=== PATIENT | female | born 1940 | race Caucasian/White ===

== ENCOUNTER 2016-04-17 17:42 | Inpatient (IN) | payer OTHER ==
--- NOTE | ~2016-04-17 | IDS ---
Interim Discharge Summary [facility] [address] [place] [address] NAME: DEBRA CALDERON : 40 STATUS : ADM IN PAT#: [id number] AGE: 76 ADM/REG DATE : 04/17/16 MR#: [id number] REPORT SERV DATE: 04/27/16 DICTATED BY: CAROL MENDOZA DATE: 04/27/16 REPORT STATUS : Draft TRANSCRIBED BY: MODL DATE: 04/27/16 ADMISSION DATE: 04/17/2016 DISCHARGE DATE: ADDENDUM: The patient had recent myocardial perfusion test with stress and rest on 04/23/2016, that actually showed no ischemia, but did show basal lateral infarct which is probably old. Post infusion ejection fraction was greater than 60%. Hence, this is an improvement in her ejection fraction from 35% that was found a few years ago to greater than 60% now. RRA/NINA Carol Mendoza M.D. / [id number] CC: Ashlyn Gordillo M.D.
--- NOTE | ~2016-04-17 | CN ---
Consultation Report [facility] [address] [place] [place]. [address] NAME: DEBRA CALDERON : 40 STATUS : ADM IN PAT#: [id number] AGE: 76 ADM/REG DATE : 04/17/16 MR#: [id number] REPORT SERV DATE: 04/23/16 DICTATED BY: NELSON VILLA DATE: 04/23/16 REPORT STATUS : Draft TRANSCRIBED BY: MODJuan Carlos DATE: 04/23/16 UROLOGY CONSULT DATE OF CONSULTATION: 04/23/2016 This consult is from Dr. Stapleton regarding urinary retention. CHIEF COMPLAINT: "I could not pass my urine." HISTORY: A 76-year-old woman, whom I saw in my office last on 11/07/2015 for urgency and sensation of incomplete emptying. However at that time, she was emptying her bladder well on urodynamic studies. She has had a stroke this admission and her bladder is in shock. She had 675 mL when the catheter was placed on the 04/20/2016. She has clear urine draining in the tubing now. She does have some discomfort in her lower abdomen with the catheter. She said it is intermittent and not very uncomfortable just this sensation. She did not follow up after her appointment in October, but states that she continued to have those feelings of incomplete emptying. PAST MEDICAL HISTORY: Significant for peripheral vascular disease, anemia, congestive heart failure, coronary artery disease, history of DVTs, hyperlipidemia, hypertension, valvular heart disease, gastroesophageal reflux disease, chronic renal disease stage 3, anxiety, history of stroke and now another stroke, and lung disease. PAST SURGICAL HISTORY: Coronary artery surgery, CABG, heart stents, and amputation of her left leg. ALLERGIES: MORPHINE, SULFA, AND ZOSYN. MEDICATIONS: On admission were Xanax, Plavix, Advair, Lasix, Neurontin, Imdur, Lopressor, nitrofurantoin which was started on the , Nitrostat, Zofran, Percocet, Pravachol, Zantac, Ranexa. SOCIAL HISTORY: She is , with six children. She used to smoke, but stopped in 2010. She drinks one to two soft drinks a day. REVIEW OF SYSTEMS: GENERAL: She denies fever. NEUROLOGIC: As above. LUNGS: As above. HEART: As above. GI: As above. : As above. MUSCULOSKELETAL: She has back pain. PHYSICAL EXAMINATION: Consultation Report [address] [place] [facility] [address] NAME: DEBRA CALDERON : 40 STATUS : ADM IN PAT#: [id number] AGE: 76 ADM/REG DATE : 04/17/16 MR#: [id number] REPORT SERV DATE: 04/23/16 DICTATED BY: NELSON VILLA DATE: 04/23/16 REPORT STATUS : Draft TRANSCRIBED BY: NINA DATE: 04/23/16 VITAL SIGNS: She is afebrile. Her vital signs are stable. She has had 1250 mL in and 1700 mL out yesterday. GENERAL: She is in no acute distress. NEUROLOGIC: Alert and oriented x3. PSYCHIATRIC: Appropriate. HEENT: She has bruising on her left lower face. Sclerae anicteric. NECK: Supple. LUNGS: Equal inspiratory effort bilaterally. EXTREMITIES: Her right lower extremity shows no edema. GENITOURINARY: She has a Richardson catheter in place, draining clear, yellow urine. LABORATORY STUDIES: White count is 7.6, hemoglobin 8.7, hematocrit 28.6, platelets 176. Creatinine is 1.27. Urinalysis was negative except for 150 glucose. IMPRESSION: Urinary retention, status post stroke consistent with a shock to bladder. PLAN: 1. I would recommend bladder rest for two weeks with Richardson catheter in place, draining continuously. 2. I have explained this to the patient and the family and they are in agreement with this plan. 3. I will write for Pyridium for her current catheter discomfort. 4. She may either followup in my office for a voiding trial in two weeks or may undergo voiding trial at rehab if that is where she goes from here. Thank you for this consult. NILDA/NINA Nelson Villa M.D. / [id number] CC: Ashlyn Gordillo M.D.
--- NOTE | ~2016-04-17 | IDS ---
Interim Discharge Summary [facility] [address] [place]. [address] NAME: DEBRA ABRAMS : 40 STATUS : ADM IN PAT#: [id number] AGE: 76 ADM/REG DATE : 04/17/16 MR#: [id number] REPORT SERV DATE: 04/27/16 DICTATED BY: CAROL MENDOZA DATE: 04/27/16 REPORT STATUS : Draft TRANSCRIBED BY: MODJuan Carlos DATE: 04/27/16 ADMISSION DATE: 04/17/2016 DISCHARGE DATE: DIAGNOSES: So far is: 1. Seizure disorder - the patient has had at least two episodes of unresponsiveness where Neurology thought that this was seizures and a repeat EEG actually shows a postictal state. Hence, the patient is now on Keppra for this. 2. Migraine headaches, which are atypical. Other diagnoses that are stable at this time include the followin. Coronary artery disease. 2. History of coronary artery bypass graft and history of ischemic cardiomyopathy with an ejection fraction of about 35%. This is stable and the patient has no other new ischemic events. 3. Peripheral vascular disease. 4. Status post left above-knee amputation. 5. Chronic kidney disease, stage III with a baseline creatinine of about 1.4, which is stable. 6. Chronic anemia, which is iron deficiency anemia basically, probably multifactorial, but no gastrointestinal bleed at this time. 7. History of diverticulosis, which is stable. 8. Remote history of transient ischemic attack, which is stable now. 9. The patient also has peripheral vascular disease with bilateral carotid artery blockages, right greater than left - Neurology has been following and CT Surgery also has been following with no definitive plans to intervene at this time given the patient's seizures. 10.The patient does have a right peripheral vascular disease as well with history of angioplasty and stenting of right external iliac as well as bilateral common iliac artery. BRIEF HOSPITAL COURSE: Ms Abrams is a 76-year-old lady with multiple medical problems who was admitted with actually history of dyspnea on exertion and exertional angina. The patient was admitted, cardiac enzymes obtained and because of history of chronic anemia - the patient has not been started on any heparin. But Dr. Bains, her regular central processing tech was consulted. He ordered a myocardial perfusion test that showed no acute ischemia, but did show depressed coronary ejection fraction as always. The patient also had two episodes of unresponsiveness during this period of hospitalization for which she had to be resuscitated and a Rapid Response was called. Neurology has been consulted and they did an EKG for the first time, which showed normal EKG, but the second time EEG did show slowing consistent with postictal state. The patient has been on Keppra for the seizure so far and has been doing well, but on 04/27/2016, the patient developed a headache which was pretty severe. The patient has been having headaches off and on, but this is fairly significant. Hence, the patient will be put on Percocet 5/325 p.o. q.6 hours for the headache, but we will go ahead and not give her any tramadol because tramadol Interim Discharge Summary [address] [place]. [address] NAME: DEBRA ABRAMS : 40 STATUS : ADM [facility]#: [id number] AGE: 76 ADM/REG DATE : 04/17/16 MR#: [id number] REPORT SERV DATE: 04/27/16 DICTATED BY: CAROL MENDOZA DATE: 04/27/16 REPORT STATUS : Draft TRANSCRIBED BY: NINA DATE: 04/27/16 increases the risk for seizures. The patient is actually a candidate for rehab, but she insists that she goes home this time and refuses rehab. So, once her seizure medications are stabilized and Neurology and Cardiology clears her and her headaches are controlled, the patient will be going home with home health nurse. RRA/MODL Carol Mendoza M.D. / [id number] CC: Ashlyn Gordillo M.D.
--- NOTE | ~2016-04-17 | CN ---
Consultation Report [facility] [address] [place]. [address] NAME: DEBRA CALDERON : 40 STATUS : ADM IN PAT#: [id number] AGE: 76 ADM/REG DATE : 04/17/16 MR#: [id number] REPORT SERV DATE: 04/20/16 DICTATED BY: GARY GREEN DATE: 04/20/16 REPORT STATUS : Draft TRANSCRIBED BY: MODL DATE: 04/20/16 DATE OF CONSULTATION: A 76-year-old white female admitted 04/17/2016 for issues of acute on chronic anemia, shortness of breath, and angina. We were consulted acutely after the Rapid Response Team was called because the patient went unresponsive. By the time I got on scene, I was notified by phone to come and intubate the patient. Upon my arrival, the patient had already had an ABG that looked okay with a pH of 7.4, pCO2 of 42, PO2 of 41, bicarbonate 25.7, and O2 saturation 99.6% on 100% FiO2. The patient had a normal glucose of 121 and initial blood pressure was as high as around 200/100. When I came on scene, they had Ambu bag over her, and I started to give physical or tactile stimuli, and she started becoming more arousable and opening her eyes. She gradually became more and more arousable from the initial presentation, and she was able to answer some simple questions and squeeze my hand with both arms and move her right leg. She has a history of a left BKA. On a nasal cannula, she was taken down to the CT scanner accompanied by myself and Dr. Ellis with Neurology. Noncontrast CT of the head did not show any blood and followup CTA of the head which was read by Dr. Ellis did not show any acute clot. She was taken to MICU bed #6. Her O2 saturation during the whole transfer process was anywhere from 91% to 93% on a few liters of nasal cannula oxygen. Blood pressure when we got to the MICU was 171/70, she was still able to arouse easily, and she was protecting her airway at the time. I asked the floor nurse who was taking care of the patient, there was no evidence of any blood loss either through vomit or through a lower GI bleed. REVIEW OF SYSTEMS: Unable to be obtained. PAST MEDICAL HISTORY: 1. Coronary artery disease with history of stent. 2. Peripheral vascular disease. 3. Chronic systolic heart failure with low EF of 35%. 4. Chronic kidney disease. 5. Hypertension. 6. Iron deficiency anemia. 7. Diverticulosis. 8. History of cecal AVMs. 9. Nephrolithiasis. 10.History of stroke. PAST SURGICAL HISTORY: 1. Left carotid endarterectomy. 2. Coronary artery bypass grafting. 3. Left eejex-cpm-avpc amputation. 4. Abdominal hysterectomy. 5. Revision of her left ddtjp-umn-gqsl amputation with a left vlruk-ptk-ucuk amputation. 6. Right external iliac as well as bilateral common iliac angioplasty and stenting. Consultation Report [address] [place]. [address] NAME: DEBRA CALDERON : 40 STATUS : ADM IN [facility]#: [id number] AGE: 76 ADM/REG DATE : 04/17/16 MR#: [id number] REPORT SERV DATE: 04/20/16 DICTATED BY: GARY GREEN DATE: 04/20/16 REPORT STATUS : Draft TRANSCRIBED BY: NINA DATE: 04/20/16 ALLERGIES: ZOSYN, SULFA, AND MORPHINE. HOME MEDICATIONS: Reviewed. SOCIAL HISTORY: Former smoker. No alcohol. No illicit drugs. FAMILY HISTORY: Mother of complications of childbirth. Father, lung cancer. Siblings, bone cancer as well as coronary disease. LABORATORY DATA: White blood cell count 7.4, hemoglobin 10.3, and platelets 218. Sodium 140, potassium 3.7, chloride 104, serum bicarb 27, BUN 22, and creatinine 1.41. Other pertinent labs include troponin negative x3, TSH 4.07 with free T4 of 1.07, serum ammonia 23, and BNP 415. Chest x-ray on admission, mild CHF with small pleural effusions. ASSESSMENT AND PLAN: 1. Unresponsive. 2. Possible stroke. 3. Acute on chronic anemia - iron deficiency anemia was thought to be the presumed diagnosis, (?) gastrointestinal bleed, history of AVMs. 4. Ischemic cardiomyopathy with low ejection fraction. 5. Chronic kidney disease. 6. Peripheral vascular disease with history of left hinoa-xgr-diuo amputation. The patient is more responsive at this current stay. Neurology had the plans of giving tPA given the possible stroke. We will discuss to make sure this is indeed the plan of care. The patient does have anemia that is being worked up. She is supposed to get EGD and colonoscopy on this admission when cleared by Cardiology from what the notes say. She did get blood transfusion on this admission for a low hemoglobin. We will recheck another H and H. We will keep her n.p.o. for now, put her on lactated Ringer and IV fluids. Continue with neuro checks and repeat an ABG. Neurology orders noted with MRI and EEG. Fifty minutes of critical care time. CEP/MODL Gary Green DO / [id number] CC: Consultation Report [address] [address] NAME: DEBRA CALDERON : 40 STATUS : ADM IN PAT#: [id number] AGE: 76 ADM/REG DATE : 04/17/16 MR#: [id number] REPORT SERV DATE: 04/20/16 DICTATED BY: GARY GREEN DATE: 04/20/16 REPORT STATUS : Draft TRANSCRIBED BY: MODL DATE: 04/20/16 Antonietta Delgado MD
--- NOTE | ~2016-04-17 | CN ---
Consultation Report [facility] [address] [place]. [address] NAME: DEBRA ABRAMS : 40 STATUS : ADM IN PAT#: [id number] AGE: 76 ADM/REG DATE : 04/17/16 MR#: [id number] REPORT SERV DATE: 04/18/16 DICTATED BY: DONNA VILLATORO III DATE: 04/18/16 REPORT STATUS : Draft TRANSCRIBED BY: NINA DATE: 04/18/16 CONSULTATION DATE OF CONSULTATION: 04/18/2016 HISTORY OF PRESENT ILLNESS: Mrs. Debra Abrams is a 76-year-old, white female, who had been in her usual state of health until approximately 2009. At that time, the patient presented with angina. The patient underwent percutaneous coronary intervention with implantation of a coronary stent. The patient did well until 02/2010. At that time, the patient presented with recurrent angina. The patient subsequently underwent cardiac catheterization followed by a coronary artery bypass graft surgery. The surgery was performed by Dr. Hua Baldwin. The patient did well until 2012. At that time, the patient noted recurrent angina. The patient subsequently underwent cardiac catheterization followed by percutaneous coronary intervention with implantation of two coronary stents. The patient also has a history of congestive heart failure resulting from an ischemic cardiomyopathy with a left ventricular ejection fraction of approximately 35%. The patient did well until approximately two weeks prior to this admission. At that time, the patient on the onset of dull substernal chest pains precipitated by exertion. The patient's chest pains were relieved by rest and sublingual nitroglycerin. The patient denied chest pain at rest. The patient was subsequently seen in the [facility] Emergency Room. The patient's hemoglobin was 6.0, hematocrit 21.3, troponin I level was less than 0.02. CPK level was 47, CK-MB was 0.6, and creatinine level was 1.5. A 12-lead electrocardiogram demonstrated sinus rhythm at 74 beats per minute with lateral nonspecific T-wave abnormalities. The patient subsequently received two units of packed red blood cells with a post transfusion hemoglobin of 10.6 and hematocrit of 33.7. Since that time, the patient has noted a significant improvement in her dyspnea on exertion and chest pain. The patient was referred for cardiovascular evaluation. The patient complained of dyspnea on exertion at less than 20 feet, two-pillow orthopnea, and occasional right pedal edema. The patient also complained of occasional brief palpitations. The patient denied paroxysmal nocturnal dyspnea and syncope. The patient has no history of rheumatic fever or cardiac murmur. The patient's documented coronary artery disease risk factors include hyperlipoproteinemia, hypertension, and peripheral arterial disease. PAST MEDICAL HISTORY: 1. Peripheral arterial disease. 2. Hyperlipoproteinemia. 3. Hypertension. 4. Stage III chronic kidney disease. 5. Nephrolithiasis. Consultation Report [address] [address] NAME: DEBRA ABRAMS : 40 STATUS : ADM IN PAT#: [id number] AGE: 76 ADM/REG DATE : 04/17/16 MR#: [id number] REPORT SERV DATE: 04/18/16 DICTATED BY: DONNA VILLATORO III DATE: 04/18/16 REPORT STATUS : Draft TRANSCRIBED BY: NINA DATE: 04/18/16 6. Status post stroke. 7. History of iron deficient anemia. 8. Diverticulosis. 9. History of depression. OPERATIVE PROCEDURES: 1. Status post appendectomy with a right salpingo-oophorectomy. 2. Status post lumbar spine fusion. 3. Status post both eyes cataract extractions with intra-ocular lens implants. 4. Status post coronary artery bypass graft surgery. 5. Status post right lower extremity bypass surgery. 6. Status post left carotid endarterectomy. 7. Status post left fgbky-ghw-rffk amputation. 8. Status post total abdominal hysterectomy. ALLERGIES: 1. ZOSYN. 2. SULFA MEDICATIONS. 3. MORPHINE SULFATE. HOME MEDICATIONS: 1. Alprazolam 1 mg p.o. at bedtime, p.r.n. 2. Clopidogrel 75 mg p.o. daily. 3. Fluticasone/salmeterol 250/50 one puff b.i.d. 4. Furosemide 20 mg p.o. daily. 5. Gabapentin 200 mg p.o. b.i.d. 6. Isosorbide mononitrate ER 30 mg p.o. daily. 7. Metoprolol 25 mg p.o. b.i.d. 8. Nitrofurantoin 100 mg p.o. b.i.d. 9. Nitroglycerin 0.4 mg sublingual p.r.n. chest pain. 10.Ondansetron 4 mg p.o. q.6 hours, p.r.n. nausea. 11.Oxycodone/acetaminophen 7.5/325 mg p.o. q.i.d., p.r.n. 12.Pravastatin 20 mg p.o. at bedtime. 13.Ranitidine 150 mg p.o. b.i.d. 14.Ranolazine ER 1000 mg p.o. b.i.d. FAMILY HISTORY: Positive for myocardial infarction, hypertension, stroke, arthritis, lung cancer, and bone cancer. Negative for seizures, kidney disease, liver disease, anemia, and mental illness. SOCIAL HISTORY: The patient has no history of alcohol use. The patient discontinued cigarette smoking approximately six years prior to this admission. PHYSICAL EXAMINATION: GENERAL: Physical examination demonstrated an alert, elderly white female, in no acute Consultation Report [address] [address] NAME: DEBRA ABRAMS : 40 STATUS : ADM IN [facility]#: [id number] AGE: 76 ADM/REG DATE : 04/17/16 MR#: [id number] REPORT SERV DATE: 04/18/16 DICTATED BY: DONNA VILLATORO III DATE: 04/18/16 REPORT STATUS : Draft TRANSCRIBED BY: NINA DATE: 04/18/16 distress. VITAL SIGNS: Demonstrated a temperature of 97.6 orally, respiratory rate of 18 breaths per minute, and a blood pressure of 118/62 mmHg with a heart rate of 61 beats per minute. SKIN: Warm and dry. NECK: Supple and nontender. There was decreased range of motion. There was no appreciable lymphadenopathy or thyromegaly. There was no jugular venous distention at 90 degrees. There was a left carotid bruit. There was no appreciable right carotid bruit. BACK: Examination of the back demonstrated no spinal or costovertebral angle tenderness. CHEST: Examination of the chest demonstrated left basilar inspiratory crackles. There were no rhonchi, wheezes, or pleural rubs. There was symmetrical expansion of the chest. There was no use of the accessory muscles for respiration. CARDIAC: Cardiac examination demonstrated a nonpalpable apical impulse. There was a regular rhythm and rate without murmur, rub, gallop, or mid systolic click. There were no thrills or heaves. There was no hepatojugular reflux. ABDOMEN: Examination of the abdomen demonstrated that it was mildly obese and soft. There was right lower quadrant tenderness to palpation. There was no appreciable hepatosplenomegaly or masses. Bowel sounds were intact. There were no abdominal bruits. There were bilateral femoral bruits. BACK: Examination of the extremities demonstrated that they were symmetrical, with the exception of a well-healed left gzayd-owf-maso amputation. There was decreased range of motion. There was no cyanosis, clubbing, or edema. The radial pulses were 2+ and equal. The right femoral pulse was 2+ and the left femoral pulse was trace to nonpalpable. The right dorsalis pedis pulse was 2+ and the right posterior tibial pulse was trace to nonpalpable. ASSESSMENT: Mrs. Debra Abrams is a 76-year-old white female with three other risk factors for coronary atherosclerotic disease (i.e., peripheral arterial disease, hyperlipoproteinemia, hypertension), status post PCI with implantation of a coronary stent (2009), status post coronary artery bypass graft surgery (02/27/2010), status post PCI with implantation of two coronary stents (approximately 2012), and a history of congestive heart failure resulting from an ischemic cardiomyopathy with a left ventricular ejection fraction of approximately 35%. The patient now presents with [place] [employer], class III angina pectoris, dyspnea on exertion, and a severe microcytic anemia consistent with iron deficiency. Although, the patient's angina and dyspnea has been significantly improved by the transfusion of two units of pack red blood cells, I would recommend cardiovascular evaluation prior to endoscopy/colonoscopy. Specifically, I have scheduled the patient for an echocardiogram and an intravenous basal dilator myocardial perfusion scan. Dr. Bains to return Wednesday a.m. /NINA Donna Villatoro III, M.D., [facility], [facility] Consultation Report [address] [place]. [address] NAME: DEBRA ABRAMS : 40 STATUS : ADM IN [facility]#: [id number] AGE: 76 ADM/REG DATE : 04/17/16 MR#: [id number] REPORT SERV DATE: 04/18/16 DICTATED BY: DONNA VILLATORO III DATE: 04/18/16 REPORT STATUS : Draft TRANSCRIBED BY: NINA DATE: 04/18/16 / [id number] CC: MD Hansel Donohue M.D. Alexander Stratienko, M.D.
--- NOTE | ~2016-04-17 | CN ---
Consultation Report [facility] [address] [place]. [address] NAME: DEBRA CALDERON : 40 STATUS : ADM IN PAT#: [id number] AGE: 76 ADM/REG DATE : 04/17/16 MR#: [id number] REPORT SERV DATE: 04/18/16 DICTATED BY: NICHOLAS JEAN-BAPTISTE DATE: 04/18/16 REPORT STATUS : Draft TRANSCRIBED BY: MODJuan Carlos DATE: 04/18/16 GI CONSULTATION. DATE OF CONSULTATION: REASON FOR CONSULTATION: Anemia. HISTORY OF PRESENT ILLNESS: A 76-year-old female, who I am familiar with. She has been worked up in the past for anemia and had an EGD and colonoscopy back in July 2012, at that time, showing cecal AVMs, few diverticula, and some hemorrhoids. She had a panendoscopy on 03/15/2014, showing irregular Z-line, erythema in the antrum, and small bowel was normal. Pathology was unremarkable on the biopsies. The patient has come in with complaints of chest pain with exertion. She was severely anemic with hemoglobin of 6. She received two units of blood and her hemoglobin is up to 10. She denies any fever or chills. No gross bleeding, and her Hemoccult here was negative for blood. 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 FAMILY HISTORY: Noncontributory. REVIEW OF SYSTEMS: A 10-point review of systems, otherwise, negative. HABITS: Denies any drug abuse. She is a former smoker. No alcohol. FAMILY HISTORY: Noncontributory from GI standpoint. HOME MEDICATIONS: Xanax, Plavix, Advair, Lasix, gabapentin, Imdur, metoprolol, Macrobid, nitroglycerin, Zofran, Percocet, Pravachol, ranitidine, and Ranexa. ALLERGIES: ZOSYN, SULFA DRUGS, AND MORPHINE. PHYSICAL EXAMINATION: VITAL SIGNS: Temperature is 97.9, pulse 64, respirations 19, and blood pressure 115/58. HEENT: Normocephalic and atraumatic. Extraocular muscles are intact. Conjunctiva slightly pale. NECK: Supple. No JVD. HEART: Regular. LUNGS: Clear to auscultation anteriorly without rales or rhonchi. ABDOMEN: Soft and nontender. EXTREMITIES: She does have a prior amputation, left lower extremity. Consultation Report [facility] [id number] [place]. [address] NAME: DEBRA CALDERON : 40 STATUS : ADM IN PAT#: [id number] AGE: 76 ADM/REG DATE : 04/17/16 MR#: [id number] REPORT SERV DATE: 04/18/16 DICTATED BY: NICHOLAS JEAN-BAPTISTE DATE: 04/18/16 REPORT STATUS : Draft TRANSCRIBED BY: MODL DATE: 04/18/16 NEUROLOGIC: She is alert. She is weak and oriented. LABORATORY DATA: Sodium 140, potassium 4.0, chloride 103, BUN 16, creatinine 1.5, white count is 6.9, hemoglobin 10.6, which is up from 6; platelets is 231. Troponin I was less than 0.02. INR is 1.3. Chest x-ray, PA and lateral shows mild CHF with small pleural effusion. IMPRESSION: 1. Severe microcytic anemia with low iron. Studies consistent with iron deficiency anemia. 2. Coronary artery disease. 3. Chest pain. 4. Weakness. 5. Congestive heart failure. RECOMMENDATIONS: 1. Monitor H and H. 2. Transfuse as needed. 3. Anemia causes likely multifactorial. She does have a history of AVMs, also renal insufficiency, and she stopped taking her iron supplement that is a few months ago. 4. We will plan EGD and colonoscopy after cardiac clearance was given. We will follow with you. KAYLAN/NINA Nicholas Jean-Baptiste M.D. / [id number] CC: MD Hansel Donohue M.D.
--- NOTE | ~2016-04-17 | EEG ---
Electroencephalogram [facility] [id number] [place]. [address] NAME: DEBRA CALDERON : 40 STATUS : ADM IN PAT#: [id number] AGE: 76 ADM/REG DATE : 04/17/16 MR#: [id number] REPORT SERV DATE: 04/20/16 DICTATED BY: DATE: REPORT STATUS : Draft TRANSCRIBED BY: MODL DATE: 04/20/16 CLINICAL INDICATION: Encephalopathy, myoclonus jerk. DESCRIPTION: This EEG was performed using 10/20 electrode placement system. During the EEG study, symmetric background activity was noted with predominant occipital rhythm of roughly 8 hertz. Muscle artifact contamination was seen particularly in the bilateral frontal area. Otherwise, photic stimulation was performed with appropriate driving response. Hyperventilation was not performed secondary to the patient's underlying medical conditions. The patient achieved drowsy state during the EEG study. No clinical myoclonus was seen during the EEG evaluation. No electrographic seizure was noted during the EEG evaluation. INTERPRETATION: This EEG study obtained during awake and drowsy state may be considered within normal limits. No focal abnormalities, seizure activity, or seizure discharge was otherwise noted. Clinical correlation is recommended. [facility]/MODL Mendez Bradford MD / [id number] CC: MD Hansel Donohue M.D.
--- NOTE | ~2016-04-17 | CN ---
Consultation Report [facility] [address] [place]. [address] NAME: DEBRA CALDERON : 40 STATUS : ADM IN [facility]#: [id number] AGE: 76 ADM/REG DATE : 04/17/16 MR#: [id number] REPORT SERV DATE: 04/20/16 DICTATED BY: DATE: REPORT STATUS : Draft TRANSCRIBED BY: MODL DATE: 04/20/16 NEUROLOGY CONSULTATION DATE OF CONSULTATION: 04/20/2016 REASON FOR CONSULT: Acute change in mental status. HISTORY OF PRESENT ILLNESS: This is a 76-year-old female who presented to [facility] on 04/17/2016 secondary to anemia as well as chest pain upon exertion. The patient was scheduled for a stress test when the patient acutely at 0730 hours became unresponsive and no focal deficit was observed other than the unresponsiveness. The patient was noted to have normal ABG at that time and normal glucose level. The patient does not appear to have similar events in the past. No history of seizure. Prior to that, the patient was alert and oriented x3. Follows simple commands without significant difficulty. The patient subsequently was noted to have improvement in mental status after D50 resuscitation although the patient was still noted to have aphasia and was noted to have generalized weakness. Prior to the hospitalization, no reports of fevers, chills, nausea, vomiting, chest pain, or shortness of breath was otherwise noted. PAST MEDICAL HISTORY: The patient's past medical history is significant for coronary artery disease, status post coronary artery bypass surgery; history of peripheral vascular disease; chronic kidney disease; hypertension; iron-deficiency anemia; diverticulosis; nephrolithiasis as well as previous history of stroke without significant residual deficits. The patient does have congestive heart failure with last known ejection fraction of 35% in 2013. ALLERGIES: THE PATIENT WAS NOTED TO HAVE ALLERGY TO ZOSYN, SULFA DRUG WELL MORPHINE. SOCIAL HISTORY: Previous tobacco usage, quit 6 years ago. No alcohol or illicit drug usage. FAMILY HISTORY: Significant for lung cancer as well as bone cancer and coronary artery disease. MEDICATIONS: The patient's current hospital medications consist of aspirin, Plavix, Dulera, Imdur, Lasix, Lopressor, Neurontin, pravastatin, Protonix, and Ranexa. REVIEW OF SYSTEMS: Unable to be obtained secondary to the patient's mental status. PHYSICAL EXAMINATION: VITAL SIGNS: At the time of evaluation, the patient was noted to have vital signs with T- max of 98.2, heart rate of 53 to 67, respirations of 16 to 18, and blood pressure of 120 to 152 over 54 to 90. GENERAL: The patient is well developed, well nourished, in no acute distress. Consultation Report [facility] [address] [place]. [address] NAME: DEBRA CALDERON : 40 STATUS : ADM IN PAT#: [id number] AGE: 76 ADM/REG DATE : 04/17/16 MR#: [id number] REPORT SERV DATE: 04/20/16 DICTATED BY: DATE: REPORT STATUS : Draft TRANSCRIBED BY: MODL DATE: 04/20/16 CARDIOVASCULAR: Regular rate and rhythm. No carotid bruits were otherwise auscultated. PULMONARY: Examination was clear to auscultation bilaterally. NEUROLOGICAL EXAMINATION: Generally the patient is lethargic but arousable, difficulty maintaining arousal. The patient was noted to have no significant verbal response but is able to follow simple commands, at the time of evaluation was noted to have difficulty following 2-step commands. Cranial nerves 2 through 12. Pupils equal, round, and reactive to light. Horizontal eye movement was seen with the patient demonstrating itlku-ds-cvsydu response. Facial expression appeared to be symmetric with the patient demonstrated noticing response to noxious stimulation in bilateral face as well as bilateral upper and lower extremity. The patient was noted to have amputation of the left lower extremity. Otherwise, was able to have 1/5 right lower extremity as well as bilateral upper extremity movement. Deep tendon reflex was hyperreflexic in bilateral upper extremity and right lower extremity. Ndlmnd-hd-utzy examination as well as gait was unable to be evaluated due to the patient's mental status as well as weakness. At the time of evaluation, the patient was noted to have white blood cell count of 7.4, hemoglobin of 10.3, hematocrit of 33.3, and platelet count of 218. Chemistry panel: Sodium of 140, potassium 3.7, chloride 104, bicarb 27, BUN of 22, creatinine 1.41, glucose 108, calcium of 8.4, and magnesium 1.9. ABG demonstrated pH of 7.41, pCO2 of 42, PO2 of 401, bicarb of 25.7, and O2 saturation of 99.6. CT scan of the brain otherwise demonstrated no significant process with CT angiogram demonstrated no proximal vessel stenosis or thrombus. IMPRESSION: Encephalopathy acutely unresponsive at 0730 hours with previous noted to be alert and oriented x3, followed commands. The patient, after resuscitation, was noted to have mild improvement of mental status but still was noted to have significant decreased verbal response. The patient is able to follow simple commands. NIH stroke scale was noted to be 18. No acute abnormality was seen on noncontrast CT of the brain. CT angiogram of the head and neck, the patient was noted to have some myoclonus at the time of evaluation. We will also check for metabolic etiology. We will also obtain EEG. RECOMMENDATIONS: 1. MRI of the brain without contrast. 2. Fasting lipid panel and hemoglobin A1c. 3. We will hold aspirin and Plavix after tPA. The patient's tPA was given at 0830 hours. 4. Echocardiogram. 5. EEG. 6. Ammonia level. 7. We will start the patient on Keppra 250 mg p.o. b.i.d. [facility]/MODL Mendez Bradford MD Consultation Report [address] [address] NAME: DEBRA CALDERON : 40 STATUS : ADM IN [facility]#: [id number] AGE: 76 ADM/REG DATE : 04/17/16 MR#: [id number] REPORT SERV DATE: 04/20/16 DICTATED BY: DATE: REPORT STATUS : Draft TRANSCRIBED BY: MODL DATE: 04/20/16 / [id number] CC: Antonietta Delgado MD
--- NOTE | ~2016-04-17 | IDS ---
Interim Discharge Summary [facility] [address] [place] [place]. [address] NAME: DEBRA CALDERON : 40 STATUS : ADM IN PAT#: [id number] AGE: 76 ADM/REG DATE : 04/17/16 MR#: [id number] REPORT SERV DATE: 04/27/16 DICTATED BY: CAROL MENDOZA DATE: 04/27/16 REPORT STATUS : Draft TRANSCRIBED BY: MODL DATE: 04/27/16 ADMISSION DATE: 04/17/2016 DISCHARGE DATE: The date that I am transferring the patient to my partner is 04/27/2016. DIAGNOSES: 1. Chest pain-nonspecific, this has resolved. Even though, the patient has multiple cardiac risk factors for chest pain including history of coronary artery disease, status post coronary artery bypass graft, ischemic cardiomyopathy with ejection fraction of only 35%. 2. Brief period of unresponsiveness that caused the patient to be called with rapid response-this is probably secondary to. DICTATION ENDS HERE AFIA/NINA Carol Mendoza M.D. / [id number] CC: Ashlyn Gordillo M.D.
--- NOTE | ~2016-04-17 | DS ---
Discharge Summary [facility] [address] [place]. [address] NAME: DEBRA CALDERON : 40 STATUS : ADM IN PAT#: [id number] AGE: 76 ADM/REG DATE : 04/17/16 MR#: [id number] REPORT SERV DATE: 04/29/16 DICTATED BY: EL EGAN DATE: 04/29/16 REPORT STATUS : Draft TRANSCRIBED BY: MODL DATE: 04/29/16 ADMISSION DATE: 04/17/2016 DISCHARGE DATE: 04/29/2016 CONSULTANTS: 1. Esau Villatoro M.D., [facility]. 2. Raj Bains M.D., Cardiology. 3. Jose Elias Chaney M.D., GI. 4. Gary Green DO, Critical Care. 5. Mendez Bradford MD. 6. Reyna Medina MD, Neurology. 7. Nelson Villa M.D., Urology. DISCHARGE PROBLEM LIST: 1. Unstable angina due to coronary disease and severe iron-deficiency anemia. 2. New onset seizures. 3. Coronary artery disease with previous PCI in 2009 and 2012 with coronary bypass 2010 with ejection fraction 55% and moderate pulmonary hypertension of 48. 4. Peripheral arterial disease with previous left above knee amputation, left carotid endarterectomy, and iliac stents. 5. Prior TIA. 6. Acute urinary retention requiring Richardson catheter. 7. Hypertension. 8. Leukocytosis. 9. History of cecal AV malformations. HISTORY: This patient was experiencing chest pain. She has some chronic chest pain from her coronary disease despite previous stents and bypass and the use of Ranexa. She reportedly was noted by her attending ambulatory care to have very low hemoglobin levels and was referred to the emergency room for this on an urgent basis. At presentation, her hemoglobin was 6 with microcytic MCV of 68.3. She was referred to our team for inpatient evaluation. The patient received transfusions and her hemoglobin improved and stabilized around 7.7. She was seen by GI, Dr. Chaney, and recommended to have EGD and colonoscopy once her cardiac and other situations were stabilized. Dr. Esau Villatoro of Cardiology saw her covering for Dr. Bains. The patient underwent a nuclear stress test on 04/23/2016 which showed a stable basal infarct, no ischemia, left ventricular ejection fraction greater than 60%. She had an echocardiogram on 04/21/2016 showing left atrial enlargement, 4.6 cm, left ventricular ejection fraction 55%, moderate pulmonary hypertension with PA pressure 48, mild mitral and tricuspid regurgitation. Then, the patient began having episodes where she had been unresponsive, no focal neurologic deficits. There was some possible improvement after D50 glucose but still with some aphasia and generalized weakness. Neurology, Dr. Bradford saw the patient. The patient had acute stroke protocol. CT of the brain showed some atrophy but no evidence of abnormality otherwise. She had a CTA of the neck and brain when changes of a left carotid endarterectomy. Some stents in the left subclavian, reported early stenosis of the proximal Discharge Summary [address] [place]. [address] NAME: DEBRA CALDERON : 40 STATUS : ADM IN PAT#: [id number] AGE: 76 ADM/REG DATE : 04/17/16 MR#: [id number] REPORT SERV DATE: 04/29/16 DICTATED BY: EL EGAN DATE: 04/29/16 REPORT STATUS : Draft TRANSCRIBED BY: NINA DATE: 04/29/16 left subclavian stent. Intracranial CTA brachiocephalic was otherwise reportedly normal. Carotid ultrasound showed 50-69% stenosis of the left carotid, right carotid less than 50% stenosis. MRA of the brain on 04/21/2016 revealed mild chronic small vessel ischemic changes. The right internal carotid had a 75% stenosis in the cavernous portion. There was a high-grade short segment stenosis, the left [employer] 2 cm beyond its origin, 50% stenosis of the left common carotid origin, evidence of left carotid endarterectomy without stenosis currently. 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 The patient had these occur several times. She had several EEGs the first of which was unremarkable. Subsequent later EEG read by Neurology to have changes consistent with a postictal state. They recommended that she be on Keppra. The patient had some acute urinary retention. She was seen by urologist, Dr. Villa who recommended Richardson catheter for at least two weeks and then a voiding trial in their office. We got clearance from Dr. Stratienko for GI to proceed with endoscopy and we put a consult into them. However, before they actually came back to see her again, the patient has announced that she is not willing to stay for her GI workup in the hospital. She is tired. She wants to go home. Her agrees they understand the risks. They want to see Dr. Chaney back in the office as an outpatient. The patient does still have some myoclonus, right arm more than the left. She has some leukocytosis with a white count of 15,000. She is afebrile. No focal signs of infection but she is not willing to stay. She is calm. She is clear. She is making sense. She is not willing to go to rehab despite our recommendations. She is only willing to go home with her and home health. We are setting up home health nurse to come out for further Richardson catheter care teaching beyond what the nurses have given her here. We are asking for home physical therapy. She already has a walker and a standard wheelchair and a power chair and a bedside commode. The patient's iron studies showed her serum iron low at 16, ferritin low at 14%, iron saturation low at 12, TIBC was 400, folic acid was 7.2, B12 is 559. We did give her 2 doses of IV iron. She is not willing to stay in the hospital for any further. So we are going to start her on some oral iron. DISCHARGE MEDICATIONS: Aspirin 81 mg daily; Pravachol 20 mg daily at bedtime; Plavix 75 mg daily; Lasix 20 mg daily; gabapentin 200 mg twice a day; Imdur 30 mg daily; Keppra 750 mg b.i.d.; melatonin [id number]-kqw-rxlycrw 3 mg at bedtime p.r.n.; metoprolol 25 mg b.i.d.; Protonix 40 mg b.i.d.(started during this hospitalization for possible GI bleed but no GI bleed ever documented); MiraLax p.r.n.; Ranexa 1000 mg extended release twice a day; Tylenol 650 q.4 hours p.r.n. pain or fever; nitroglycerin 0.4 mg sublingual p.r.n.; Xanax 1 mg at bedtime p.r.n. insomnia which is a chronic medicine for her; Zofran 4 mg ODT q.6 hours p.r.n. nausea; Advair Diskus 250/50 one puff twice a day which is a chronic medicine for her; Percocet 7/325 four times a day p.r.n. pain; Nu-Iron 150 mg p.o. b.i.d. She is to follow up with her PCP, Dr. Hansel Tipton in one week; urologist, Dr. Villa in Discharge Summary [address] [address] NAME: DEBRA CALDERON : 40 STATUS : ADM IN PAT#: [id number] AGE: 76 ADM/REG DATE : 04/17/16 MR#: [id number] REPORT SERV DATE: 04/29/16 DICTATED BY: EL EGAN DATE: 04/29/16 REPORT STATUS : Draft TRANSCRIBED BY: MODL DATE: 04/29/16 one week; and [facility] in 4-6 weeks; Cardiology, Dr. Bains in one to two weeks; GI, Dr. Chaney in one to two weeks. I spent 53 minutes today with the patient and family in discharge planning. RSG/AYAKAL El Egan M.D. / [id number] CC: Ashlyn Jacobo M.D. Alexander Stratienko, M.D. James Scott Manton, M.D. Larry Sprouse II, M.D. Kymber Habenicht, M.D. Nilesh C Patel, M.D. [facility]
--- NOTE | ~2016-04-17 | HP ---
History And Physical [place] [id number] [facility] [place]. [address] NAME: DEBRA ABRAMS : 40 STATUS : ADM IN PAT#: [id number] AGE: 76 ADM/REG DATE : 04/17/16 MR#: [id number] REPORT SERV DATE: 04/17/16 DICTATED BY: NICHOLAS PINEDA DATE: 04/17/16 REPORT STATUS : Draft TRANSCRIBED BY: MODL DATE: 04/17/16 DATE OF ADMISSION: 04/17/2016 POINT OF ENTRY: [facility] Emergency Department. PRIMARY PERSONAL LINES ACCOUNT MANAGER: Dr. Bains. PRIMARY SWEEPER CLEANER INDUSTRIAL: Dr. Mejia. CHIEF COMPLAINT: Chest pain with exertion as well as a low hemoglobin levels. HISTORY OF PRESENT ILLNESS: Ms. Abrams is a 76-year-old female with a history of coronary artery disease with prior coronary artery bypass grafting as well as peripheral vascular disease, chronic kidney disease stage 3, as well as hypertension, who presents to the emergency room today with multiple complaints including dyspnea on exertion as well as low hemoglobin levels. The patient appears to have had issues with chronic chest pain in the past that she is both on Imdur as well as Ranexa. They state that she was placed on Ranexa by Dr. Bains about a year ago with some improvement in her chest pain complaints. For the past month, she has noted dyspnea as well as angina with exertion. She denies any chest pain at rest. She states that the shortness of breath and chest pain will quickly resolve once she ceases exertion and rests. She unfortunately has not informed any of her physicians about this new development. The patient is also referred to the emergency department for low hemoglobin levels as noted by her rental sales agent. The patient states that she has required blood transfusions in the past, and looking through [facility], it appears that she has received a blood transfusion as recently as 02/2014 for hemoglobin level of 7.1. She denies any melena, hematochezia, hemoptysis, or hematemesis. Does report she has some red-colored urine. She states she does not see a GI doctor on a regular basis. Per review of [facility], it appears that she had an EGD by Dr. Chaney in 03/2014 that appeared to be normal at that time, although review of [facility] does reveal that she has iron deficient anemia looking at her iron studies. The patient denies any abdominal pain, nausea, vomiting, diarrhea, constipation, melena, hematochezia, hemoptysis, or hematemesis. Comprehensive review of system otherwise negative unless listed in history of present illness. Initial evaluation in the emergency department notable for a hemoglobin level of 6.0, hematocrit of 21.3 with MCV of 68, an elevated RDW, occult stool was negative. Her initial EKG and cardiac enzymes were unremarkable. Chest x-ray was concerning for a mild CHF type pattern with some bilateral pleural effusions. The ER physician ordered 2 units of packed red blood cells to be transfused, and she was admitted to the Hospitalist Service. History And Physical [address] [address] NAME: DEBRA ABRAMS : 40 STATUS : ADM IN PAT#: [id number] AGE: 76 ADM/REG DATE : 04/17/16 MR#: [id number] REPORT SERV DATE: 04/17/16 DICTATED BY: NICHOLAS PINEDA DATE: 04/17/16 REPORT STATUS : Draft TRANSCRIBED BY: NINA DATE: 04/17/16 PREVIOUS MEDICAL HISTORY: 1. Coronary artery disease with prior coronary artery bypass grafting. 2. Peripheral vascular disease. 3. Chronic kidney disease, stage 3, baseline creatinine of approximately 1.2 to 1.4. 4. Hypertension. 5. Iron-deficiency anemia. 6. Diverticulosis. 7. Nephrolithiasis. 8. Remote history of TIA/CVA. 9. History of chronic systolic congestive heart failure. Last known ejection fraction of 35% on echocardiogram from 2013. SURGICAL HISTORY: 1. Left carotid endarterectomy. 2. Coronary artery bypass grafting. 3. Left qwotm-wip-zrop amputation with revision to left npzsg-jkw-zxcm amputation. 4. Abdominal hysterectomy. 5. Right external iliac as well as bilateral common iliac angioplasty and stenting. ALLERGIES: ZOSYN, SULFA DRUGS, AND MORPHINE. HOME MEDICATIONS: 1. Xanax 1 mg at bedtime. 2. Plavix 75 mg daily. 3. Advair one puff inhalation b.i.d. 4. Lasix 20 mg daily. 5. Gabapentin 200 mg b.i.d. 6. Imdur 30 mg daily. 7. Metoprolol 25 mg b.i.d. 8. Macrobid 100 mg b.i.d. 9. Nitroglycerin 0.4 mg sublingual p.r.n. 10.Zofran 4 mg q.6 hours p.r.n. 11.Percocet 7.5/325 one tab q.i.d. p.r.n. 12.Pravachol 20 mg at bedtime. 13.Ranitidine 150 mg b.i.d. 14.Ranexa 100 mg b.i.d. SOCIAL HISTORY: She is a former smoker, quit about 6 years ago. Denies any alcohol. Denies any illicits. FAMILY MEDICAL HISTORY: Mother from complication of childbirth. Father with history of lung cancer. Siblings with history of bone cancer as well as coronary artery disease. LABS AND IMAGIN. White count is 6.2, hemoglobin 6.0, hematocrit 21.3, and platelet count 273. INR 1.3. MCV is 68, RDW is elevated at 17. History And Physical [address] [address] NAME: DEBRA ABRAMS : 40 STATUS : ADM IN [facility]#: [id number] AGE: 76 ADM/REG DATE : 04/17/16 MR#: [id number] REPORT SERV DATE: 04/17/16 DICTATED BY: NICHOLAS PINEDA DATE: 04/17/16 REPORT STATUS : Draft TRANSCRIBED BY: NINA DATE: 04/17/16 2. Occult stool negative. 3. Sodium is 140, potassium 4.0, chloride 103, carbon dioxide 26, BUN 16, creatinine 1.50, glucose is 119, calcium is 8.6, magnesium 2.0, protein 7.1, albumin 3.1, bilirubin is 0.4, ALT is 17, AST 14, alkaline phosphatase is 56. 4. Troponin is less than 0.02. 5. EKG per my review shows normal sinus rhythm with no evidence of any acute ischemia or infarction. Chest x-ray shows a mild CHF type pattern with bilateral pleural effusions as well as intravascular volume overload. 6. Per review of [facility], she has echocardiogram from 08/2013 which shows ejection fraction of 35%. However, she also has cardiac catheterization from same month where a left ventriculogram reportedly showed preserved ejection fraction. PHYSICAL EXAMINATION: VITAL SIGNS: Temperature is 97.0 Degrees Fahrenheit, pulse is 74, respirations 17, saturating 97% on room air. Blood pressure is 135/60. GENERAL: The patient is awake, alert, in no acute distress. Resting comfortably in bed. She is a well-developed, well-nourished, elderly female. Multiple family members are at bedside. HEENT: Atraumatic and normocephalic. Moist mucous membranes. Pupils are equal, round, reactive to light and accommodation. Extraocular eye movements are intact. No scleral icterus. NECK: No jugular venous distention. No carotid bruits. CARDIAC: Regular rate and rhythm. No murmurs, rubs, or gallops. Normal S1, S2. LUNGS: Clear to auscultation bilaterally. Does have some decreased breath sounds at bases as well as faint inspiratory crackles at bilateral bases. ABDOMEN: Soft, nontender, nondistended. Good bowel sounds. No rebound, guarding, or rigidity. EXTREMITIES: Warm and perfused. No cyanosis, clubbing, or edema. She is status post left AKA. SKIN: Warm and dry except for noted above. PSYCH: Affect appropriate. NEURO: Alert and oriented x3. Cranial nerves 2 through 12 grossly intact. Speech is normal. Gait not assessed. ASSESSMENT: Ms. Abrams is a 76-year-old female, who presents with a one-month history of exertional angina as well as dyspnea on exertion and also found to have a hemoglobin level of 6.0. PROBLEM LIST: 1. Exertional angina. 2. Dyspnea on exertion. 3. Microcytic anemia. 4. Chronic kidney disease stage 3. 5. History of chronic systolic congestive heart failure with ejection fraction of 35%. 6. History of coronary artery disease as well as peripheral vascular disease. PLAN: History And Physical [address] [address] NAME: DEBRA ABRAMS : 40 STATUS : ADM IN [facility]#: [id number] AGE: 76 ADM/REG DATE : 04/17/16 MR#: [id number] REPORT SERV DATE: 04/17/16 DICTATED BY: NICHOLAS PINEDA DATE: 04/17/16 REPORT STATUS : Draft TRANSCRIBED BY: MODL DATE: 04/17/16 1. Exertional angina. The patient does have extensive known cardiac and peripheral vascular disease. However, I suspect that a majority of her exertional angina is likely related to her worsening anemia. Initial EKG and cardiac enzymes were unremarkable. Continue to trend out cardiac enzymes. Continue the patient's home aspirin, Plavix, beta trena, statin, long-acting nitrates, as well as Ranexa. We will consult the patient's primary sales representative cash registers, Dr. Bains, for assistance. 2. Dyspnea on exertion. Again, I suspect this is likely due to her profound anemia. She does appear euvolemic on examination. Her chest x-ray is concerning for some mild intravascular volume overload. We will check a BNP level as well as give some IV Lasix after her blood transfusions. 3. Microcytic anemia. Occult stool was negative. Recent EGD also negative but review of labs showed she was iron deficient in 04/2015. We will consult Gastroenterology for assistance. Recheck iron studies as well as folate, B12, and reticulocyte count. Place her on Protonix IV b.i.d. empirically. 4. Chronic kidney disease stage 3. Close to her recent baseline. We will continue to monitor. 5. History of chronic systolic congestive heart failure. The patient appears euvolemic on exam but slightly volume overloaded on chest x-ray. We will check a BNP level as well as give IV Lasix after each unit of blood transfusion. 6. History of coronary artery disease as well as peripheral vascular disease. Continue the patient's home aspirin, Plavix, as well as beta trena and statin. 7. DVT prophylaxis. FARIBA's and SCD's given concern for bleeding. CODE STATUS: The patient wished to be full code. JCB/MODL Nicholas Pineda MD / [id number] CC: MD Fariba Donohue M.D. Alexander Stratienko, M.D.
--- NOTE | ~2016-04-17 | EEG ---
Electroencephalogram [address] [address] NAME: DEBRA CALDERON : 40 STATUS : ADM IN PAT#: [id number] AGE: 76 ADM/REG DATE : 04/17/16 MR#: [id number] REPORT SERV DATE: 04/25/16 DICTATED BY: REYNA MEDINA DATE: 04/25/16 REPORT STATUS : Draft TRANSCRIBED BY: NINA DATE: 04/25/16 ELECTROENCEPHALOGRAPHY REPORT INTERPRETING PHYSICIAN: Reyna Medina M.D. EEG NUMBER: [id number]. LOCATION OF THE PATIENT: Room [address] [place] [address]. REASON FOR EEG: New onset seizures. 23 surface electrodes, 10-20 international placement was used. The patient was noted to be awake and drowsy throughout the study. Photic stimulation was performed. Brief period of light sleep was recorded. The background activity consisted of moderate voltage, poorly organized posterior predominantly theta range activity of 6-9 cycles per second located in the posterior head regions. Increase of slower frequencies was noted throughout the study. Photic stimulation did not bring out additional abnormalities. No significant asymmetry of cerebral activity was seen. Intermittent increase of slower and higher in amplitude waveforms were seen in the posterior temporal parietooccipital regions bilaterally. The patient's clinical research monitor showed sinus rhythm. Heart rate of approximately 72 beats per minute. The video recording showed no evidence of tonic-clonic activity during this study. Increase of faster in appearance waveform was seen in the anterior head regions. IMPRESSION: MILDLY ABNORMAL EEG CHARACTERIZED BY PRESENCE OF INCREASE OF GENERALIZED SLOWING. THIS MAY REPRESENT A POSTICTAL STATE. EPISODE OF INCREASED RHYTHMIC IN APPEARANCE SHOWING POSTERIORLY SEEN TOWARDS THE END OF THE RECORDING. HOWEVER, IT DID NOT CORRESPOND TO ABNORMAL TONIC-CLONIC ACTIVITY. IMPRESSION: ABNORMAL EEG CHARACTERIZED BY PRESENCE OF DIFFUSE GENERALIZED SLOWING, WHICH MAY BE CONSISTENT WITH A POSTICTAL STATE. NO ACTIVE PAROXYSMAL EPILEPTIFORM ACTIVITY WAS SEEN DURING THIS STUDY. NO SIGNIFICANT ASYMMETRY OF CEREBRAL ACTIVITY WAS PRESENT. CLINICAL CORRELATION IS RECOMMENDED. DANIEL/NINA Reyna Medina MD / [id number] CC: Ashlyn Gordillo M.D.
[2016-04-17 16:13] LABS: BASOPHILS 0.2 %; BASOPHILS ABSOLUTE 0.01 10/3/uL (0.0-0.16); EOSINOPHILS 0.5 %; EOSINOPHILS ABSOLUTE 0.03 10/3/uL (0.0-0.53); ER CBC TAT 0 Hrs 05 Mins; HEMATOCRIT 21.3 % (36.0-48.0); IMMATURE GRANULOCYTES 0.5 %; IMMATURE GRANULOCYTES ABSOLUTE 0.03 10/3/uL (0.0-0.11); LYMPHOCYTES 23.6 %; LYMPHOCYTES ABSOLUTE 1.45 10/3/uL (0.67-4.30); MEAN CORPUS HGB CONC 28.2 g/dL (32.0-36.0); MEAN CORPUSCULAR HEMOGLOB 19.2 pg (26.0-34.0); MEAN CORPUSCULAR VOLUME 68.3 fL (80-100); MEAN PLATELET VOLUME 9.5 fL (9.2-13.0); MONOCYTES 9.9 %; MONOCYTES ABSOLUTE 0.61 10/3/uL (0.21-1.20); NEUTROPHILS 65.3 %; NEUTROPHILS ABSOLUTE 4.02 10/3/uL (2.02-8.40); PLATELET COUNT 273 10/3/uL (150-400); RBC DISTRIBUTION WIDTH 17.3 % (12.0-16.0); RED CELL COUNT 3.12 10/6/uL (4.0-5.6); WHITE BLOOD CELLS 6.2 10/3/uL (4.5-10.5)
[2016-04-17 16:15] LABS: MANUAL DIFF NO %
[2016-04-17 16:21] LABS: INTERNATIONAL NORMAL RATI 1.3 UNITS (-); PROTIME (NOT ORD) 15.7 SEC (12.0-14.5)
[2016-04-17 16:22] LABS: PARTIAL THROMBO TIME 34.9 SEC (22.5-37.2)
[2016-04-17 16:29] LABS: BUN (BLOOD UREA NITROGEN) 16 MG/DL (6-23); CALCIUM, SERUM 8.6 MG/DL (8.5-10.4); CHEST PAIN PROFILE TAT 0 Hrs 21 Mins; CHLORIDE, SERUM 103 MMOL/L (96-112); CO2 (CARBON DIOXIDE) 26 MMOL/L (24-34); GFR AFRICAN AMERICAN 39 ML/MIN (>=60); GFR NON AFRICAN AMERICAN 33 ML/MIN (>=60); SODIUM, SERUM 140 MMOL/L (135-148); TROPONIN I <0.02 NG/ML (<0.05)
[2016-04-17 16:30] LABS: GLUCOSE, SERUM 119 MG/DL (60-99)
[2016-04-17 17:28] LABS: ALBUMIN 3.1 G/DL (3.5-5.0); ALKALINE PHOSPHATASE 56 U/L (45-117); DIRECT BILIRUBIN 0.1 MG/DL (0.0-0.4); INDIRECT BILIRUBIN(NOT ORDER) 0.3 MG/DL (0.1-0.9); SGOT(AST) 14 U/L (5-40); SGPT(ALT) 17 U/L (5-65); TOTAL BILIRUBIN 0.4 MG/DL (0-1.2); TOTAL PROTEIN 7.1 G/DL (6.0-8.5)
[~2016-04-17 17:42] MED LIST: *UNABLE3; ACCUNEB INH; ADALAT CC30 MG PO; ALTA2.5 PO; ASA5GR PO; ASAB; ASAB PO; BRILINTA PO; BRILINTA90 MG PO; C5 PO; COREG12 PO; COREG6 PO; CRESTOR10 PO; DEPO-ESTRAD5 MG/1 ML IM; DSS PO; DYAZIDE1 CAP PO; ENDOCET1 TA1 PO; ENDOCET1 TAB PO; ESTRADIOL; ESTROGEN INJ IM; ISOSORB DIN30 MG PO; K-TABS10 MEQ PO; K500 PO; KDUR20 PO; KLOR-CON M2020 MEQ PO; L40 PO; LEVAQUIN5T PO; LOP25 PO; LOVENOX40 SC; LYRICA100 MG PO; MAALOX PO; MAX25 PO; MEP50TAB PO; METHOC500B PO; MINITRAN0.2 MG/HR TOP; MIRALAXPKT PO; MUCINEX1200 MG PO; NAC 600 OR; NERVE PILL; NEUR300 PO; NITROII20C TOP; NITROII30C TOP; NITROSTAT0.4 MG SL; NTG150 SL; OXYCON10 PO; PCET PO; PERCOCET1 TA2 PO; PERCOCET1 TA3 PO; PHILLIPS M800 MG/5 M PO; PLAVIX PO; PR12.5 PO; PR25 PO; PRAVAC PO; PRAVACHOL40 MG PO; PRILOSEC40 MG PO; PRIN5 PO; PROAIR HFA PO; PROTONIX PO; PROVHFA INH; RAN500 PO; RANEXA1000 MG PO; SIMVASTATIN PO; STOMACH PILL; SYMBICORT 160/41 INH INH; T PO; TOPXL25 PO; TYLENOL PM PO; VENTOLIN HFA INH; X5 PO; XANAX1 MG PO; ZOFRAN4 PO; ZYVOXPO PO; [UNRECOGNIZED DRUG - OTHER] IM
[2016-04-17] MEDS ORDERED: MACROBID PO (18:29)
[2016-04-17] MEDS ORDERED: IMDUR30 PO (18:32)
[2016-04-17] MEDS ORDERED: RANEXA1000 MG PO (18:33)
[2016-04-17] MEDS ORDERED: ADVAIR250 INH (18:33)
[2016-04-17] MEDS ORDERED: XANAX1 MG PO (18:34)
[2016-04-17] MEDS ORDERED: LOP25 PO (18:34)
[2016-04-17] MEDS ORDERED: PLAVIX PO (18:34)
[2016-04-17] MEDS ORDERED: L20 PO ×2 (18:35)
[2016-04-17] MEDS ORDERED: ZOFRAN ODT4 MG PO (18:35)
[2016-04-17] MEDS ORDERED: NITROSTAT0.4 MG SL (18:36)
[2016-04-17] MEDS ORDERED: PERCOCET 7.5/321 TAB PO (18:36)
[2016-04-17] MEDS ORDERED: PRAVAC PO (18:37)
[2016-04-17] MEDS ORDERED: NEUR100 PO (18:37)
[2016-04-17] MEDS ORDERED: ZANTAC150 MG PO (18:38)
[2016-04-17 21:28] LABS: FERRITIN 14 NG/ML (8-252); IRON BINDING CAPACITY 400 MCG/DL (225-410); IRON, SERUM 16 MCG/DL (35-150)
[2016-04-17 23:08] LABS: RETICULOCYTE COUNT 2.7 % (0.5-2.5); RETICULOCYTE COUNT ABSOLUTE 108.8 10/3/uL (20.2-119.8)
[2016-04-17 23:23] LABS: CK-MB 0.6 NG/ML; CPK 47 U/L (0-200); TROPONIN I <0.02 NG/ML (<0.05)
[2016-04-18 06:56] LABS: BASOPHILS 0.1 %; BASOPHILS ABSOLUTE 0.01 10/3/uL (0.0-0.16); EOSINOPHILS ABSOLUTE 0.14 10/3/uL (0.0-0.53); HEMATOCRIT 33.7 % (36.0-48.0); HEMOGLOBIN 10.6 g/dL (12.0-16.0); IMMATURE GRANULOCYTES 0.7 %; IMMATURE GRANULOCYTES ABSOLUTE 0.05 10/3/uL (0.0-0.11); LYMPHOCYTES 23.2 %; MANUAL DIFF NO %; MEAN CORPUS HGB CONC 31.5 g/dL (32.0-36.0); MEAN CORPUSCULAR VOLUME 69.9 fL (80-100); MEAN PLATELET VOLUME 10.4 fL (9.2-13.0); MONOCYTES 7.8 %; MONOCYTES ABSOLUTE 0.54 10/3/uL (0.21-1.20); NEUTROPHILS 66.2 %; NEUTROPHILS ABSOLUTE 4.55 10/3/uL (2.02-8.40); PLATELET COUNT 231 10/3/uL (150-400); RBC DISTRIBUTION WIDTH 18.5 % (12.0-16.0); RED CELL COUNT 4.82 10/6/uL (4.0-5.6); WHITE BLOOD CELLS 6.9 10/3/uL (4.5-10.5)
[2016-04-18 07:07] LABS: BUN (BLOOD UREA NITROGEN) 18 MG/DL (6-23); CALCIUM, SERUM 8.6 MG/DL (8.5-10.4); CHLORIDE, SERUM 102 MMOL/L (96-112); CO2 (CARBON DIOXIDE) 27 MMOL/L (24-34); CPK 46 U/L (0-200); CREATININE 1.46 MG/DL (0.55-1.02); FREE T4 1.07 NG/DL (0.76-1.46); GFR AFRICAN AMERICAN 40 ML/MIN (>=60); GFR NON AFRICAN AMERICAN 35 ML/MIN (>=60); PHOSPHORUS, SERUM 3.6 MG/DL (2.5-4.5); POTASSIUM, SERUM 3.8 MMOL/L (3.5-5.3); SODIUM, SERUM 140 MMOL/L (135-148); TROPONIN I <0.02 NG/ML (<0.05)
[2016-04-18 07:10] LABS: CK-MB 0.7 NG/ML; FOLATE 12.7 NG/ML (>5.2); GLUCOSE, SERUM 86 MG/DL (60-99)
[2016-04-18 07:28] LABS: ANISOCYTOSIS 1+ (5-10/OIF) (0-5/OIF); PLATELET ESTIMATE ADQ (ADEQUATE)
[2016-04-18 07:29] LABS: ELLIPTOCYTES 1+ (3-10/OIF) (0-2/OIF); GIANT PLATELET RARE; HYPOCHROMIA 1+ (3-10/OIF) (0-2/OIF); POIKILOCYTOSIS 1+ (5-10/OIF) (0-5/OIF)
[2016-04-18 20:04] LABS: HEMATOCRIT 34.7 % (36.0-48.0); HEMOGLOBIN 10.7 g/dL (12.0-16.0)
[2016-04-19 04:41] LABS: BASOPHILS 0.3 %; BASOPHILS ABSOLUTE 0.02 10/3/uL (0.0-0.16); EOSINOPHILS ABSOLUTE 0.24 10/3/uL (0.0-0.53); HEMATOCRIT 36.2 % (36.0-48.0); HEMOGLOBIN 11.2 g/dL (12.0-16.0); IMMATURE GRANULOCYTES 0.4 %; IMMATURE GRANULOCYTES ABSOLUTE 0.03 10/3/uL (0.0-0.11); LYMPHOCYTES 22.9 %; LYMPHOCYTES ABSOLUTE 1.81 10/3/uL (0.67-4.30); MEAN CORPUS HGB CONC 30.9 g/dL (32.0-36.0); MEAN CORPUSCULAR HEMOGLOB 21.7 pg (26.0-34.0); MEAN CORPUSCULAR VOLUME 70.3 fL (80-100); MEAN PLATELET VOLUME 10.2 fL (9.2-13.0); MONOCYTES ABSOLUTE 0.71 10/3/uL (0.21-1.20); NEUTROPHILS 64.4 %; NEUTROPHILS ABSOLUTE 5.08 10/3/uL (2.02-8.40); PLATELET COUNT 210 10/3/uL (150-400); RBC DISTRIBUTION WIDTH 18.7 % (12.0-16.0); RED CELL COUNT 5.15 10/6/uL (4.0-5.6); WHITE BLOOD CELLS 7.9 10/3/uL (4.5-10.5)
[2016-04-19 04:42] LABS: MANUAL DIFF NO %
[2016-04-19 04:46] LABS: A/G RATIO 0.7 (0.7-1.9); ALKALINE PHOSPHATASE 52 U/L (45-117); BUN (BLOOD UREA NITROGEN) 18 MG/DL (6-23); CALCIUM, SERUM 8.6 MG/DL (8.5-10.4); CHLORIDE, SERUM 101 MMOL/L (96-112); CO2 (CARBON DIOXIDE) 26 MMOL/L (24-34); CREATININE 1.56 MG/DL (0.55-1.02); GFR AFRICAN AMERICAN 37 ML/MIN (>=60); GFR NON AFRICAN AMERICAN 32 ML/MIN (>=60); GLOBULIN 4.2 G/DL (2.5-4.1); GLUCOSE, SERUM 79 MG/DL (60-99); POTASSIUM, SERUM 3.7 MMOL/L (3.5-5.3); SGOT(AST) 21 U/L (5-40); SGPT(ALT) 16 U/L (5-65); SODIUM, SERUM 138 MMOL/L (135-148); TOTAL BILIRUBIN 0.6 MG/DL (0-1.2); TOTAL PROTEIN 7.2 G/DL (6.0-8.5)
[2016-04-19 05:29] LABS: ANISOCYTOSIS 1+ (5-10/OIF) (0-5/OIF); PLATELET ESTIMATE ADQ (ADEQUATE)
[2016-04-19 05:30] LABS: POLYCHROMASIA 1+ (2-5/OIF) (0-1/OIF); TEARDROP SHAPED RBCS OCC (0-2/OIF)
[2016-04-19 05:31] LABS: ELLIPTOCYTES 1+ (3-10/OIF) (0-2/OIF); POIKILOCYTOSIS 1+ (5-10/OIF) (0-5/OIF)
[2016-04-20 07:03] LABS: BASOPHILS 0.3 %; BASOPHILS ABSOLUTE 0.02 10/3/uL (0.0-0.16); EOSINOPHILS 2.8 %; EOSINOPHILS ABSOLUTE 0.21 10/3/uL (0.0-0.53); HEMATOCRIT 33.3 % (36.0-48.0); HEMOGLOBIN 10.3 g/dL (12.0-16.0); IMMATURE GRANULOCYTES 0.3 %; IMMATURE GRANULOCYTES ABSOLUTE 0.02 10/3/uL (0.0-0.11); LYMPHOCYTES 23.4 %; LYMPHOCYTES ABSOLUTE 1.74 10/3/uL (0.67-4.30); MANUAL DIFF NO %; MEAN CORPUS HGB CONC 30.9 g/dL (32.0-36.0); MEAN CORPUSCULAR HEMOGLOB 21.9 pg (26.0-34.0); MEAN CORPUSCULAR VOLUME 70.9 fL (80-100); MEAN PLATELET VOLUME 9.8 fL (9.2-13.0); MONOCYTES 9.5 %; MONOCYTES ABSOLUTE 0.71 10/3/uL (0.21-1.20); NEUTROPHILS 63.7 %; NEUTROPHILS ABSOLUTE 4.74 10/3/uL (2.02-8.40); PLATELET COUNT 218 10/3/uL (150-400); RBC DISTRIBUTION WIDTH 19.2 % (12.0-16.0); WHITE BLOOD CELLS 7.4 10/3/uL (4.5-10.5)
[2016-04-20 07:08] LABS: CALCIUM, SERUM 8.4 MG/DL (8.5-10.4); CHLORIDE, SERUM 104 MMOL/L (96-112); CO2 (CARBON DIOXIDE) 27 MMOL/L (24-34); CREATININE 1.41 MG/DL (0.55-1.02); GFR AFRICAN AMERICAN 42 ML/MIN (>=60); GFR NON AFRICAN AMERICAN 36 ML/MIN (>=60); PHOSPHORUS, SERUM 3.2 MG/DL (2.5-4.5); POTASSIUM, SERUM 3.7 MMOL/L (3.5-5.3); SODIUM, SERUM 140 MMOL/L (135-148)
[2016-04-20 07:09] LABS: BUN (BLOOD UREA NITROGEN) 22 MG/DL (6-23); GLUCOSE, SERUM 108 MG/DL (60-99)
[2016-04-20 07:42] LABS: PLATELET ESTIMATE ADQ (ADEQUATE)
[2016-04-20 07:43] LABS: ANISOCYTOSIS 1+ (5-10/OIF) (0-5/OIF); HYPOCHROMIA 1+ (3-10/OIF) (0-2/OIF); MACROCYTES 1+ (5-10/OIF) (0-5/OIF); MICROCYTES 1+ (5-10/OIF) (0-5/OIF); POLYCHROMASIA 1+ (2-5/OIF) (0-1/OIF)
[2016-04-20 07:51] LABS: ALLENS TEST Pos; BE (BASE EXCESS) 0.9 MEQ/L (0 +/- 2.5); CARBOXYHEMOGLOBIN 0.5 % (0-3); DEVICE NC; HCO3 (ACTUAL BICARBONATE) 25.7 MEQ/L (23-27); HEMOBLOGIN CONTENT 12.2 G/DL (12-16); INSTRUMENT SERIAL # 11843; METHEMOGLOBIN 0.3 % (0-3); PCO2 (CO2 TENSION) 42 MMHG (35-45); PO2 (O2 TENSION) 401 MMHG (79-93); SAMPLE Arterial; pH 7.41 (7.37-7.43)
[2016-04-20 14:34] LABS: HEMATOCRIT 34.6 % (36.0-48.0); HEMOGLOBIN 10.6 g/dL (12.0-16.0)
[2016-04-20 15:09] LABS: FREE T4 1.05 NG/DL (0.76-1.46)
[2016-04-20 15:11] LABS: FOLATE 7.2 NG/ML (>5.2); ULTRASENSITIVE TSH 3.2 MCIU/ML (0.358-3.740)
[2016-04-20 17:12] LABS: HEMATOCRIT 32.7 % (36.0-48.0)
[2016-04-21 03:53] LABS: BASOPHILS 0.1 %; BASOPHILS ABSOLUTE 0.01 10/3/uL (0.0-0.16); EOSINOPHILS 2.7 %; EOSINOPHILS ABSOLUTE 0.22 10/3/uL (0.0-0.53); HEMATOCRIT 31.3 % (36.0-48.0); HEMOGLOBIN 9.6 g/dL (12.0-16.0); IMMATURE GRANULOCYTES 0.4 %; IMMATURE GRANULOCYTES ABSOLUTE 0.03 10/3/uL (0.0-0.11); LYMPHOCYTES 18.7 %; LYMPHOCYTES ABSOLUTE 1.53 10/3/uL (0.67-4.30); MEAN CORPUS HGB CONC 30.7 g/dL (32.0-36.0); MEAN CORPUSCULAR HEMOGLOB 22.1 pg (26.0-34.0); MEAN CORPUSCULAR VOLUME 72.1 fL (80-100); MEAN PLATELET VOLUME 10.2 fL (9.2-13.0); MONOCYTES 8.4 %; MONOCYTES ABSOLUTE 0.69 10/3/uL (0.21-1.20); NEUTROPHILS 69.7 %; NEUTROPHILS ABSOLUTE 5.69 10/3/uL (2.02-8.40); PLATELET COUNT 196 10/3/uL (150-400); RBC DISTRIBUTION WIDTH 19.6 % (12.0-16.0); RED CELL COUNT 4.34 10/6/uL (4.0-5.6); WHITE BLOOD CELLS 8.2 10/3/uL (4.5-10.5)
[2016-04-21 03:54] LABS: MANUAL DIFF NO %
[2016-04-21 04:07] LABS: BUN (BLOOD UREA NITROGEN) 19 MG/DL (6-23); CALCIUM, SERUM 8.5 MG/DL (8.5-10.4); CHLORIDE, SERUM 104 MMOL/L (96-112); CHOL/HDL RATIO(NOT ORDER) 2.8 (0-5); CHOLESTEROL 110 MG/DL (< 200); CO2 (CARBON DIOXIDE) 26 MMOL/L (24-34); CREATININE 1.12 MG/DL (0.55-1.02); GFR AFRICAN AMERICAN 55 ML/MIN (>=60); GFR NON AFRICAN AMERICAN 48 ML/MIN (>=60); GLUCOSE, SERUM 79 MG/DL (60-99); HDL CHOLESTEROL 39 MG/DL (> 49); LDL CHOLESTEROL 44 MG/DL (< 130); NON-HDL CHOLESTEROL 71 MG/DL (< 160); PHOSPHORUS, SERUM 2.5 MG/DL (2.5-4.5); POTASSIUM, SERUM 3.7 MMOL/L (3.5-5.3); SODIUM, SERUM 140 MMOL/L (135-148); TRIGLYCERIDE 139 MG/DL (< 150)
[2016-04-21 04:18] LABS: ANISOCYTOSIS 1+ (5-10/OIF) (0-5/OIF); HYPOCHROMIA 1+ (3-10/OIF) (0-2/OIF); PLATELET ESTIMATE ADQ (ADEQUATE)
[2016-04-21 04:19] LABS: POLYCHROMASIA 1+ (2-5/OIF) (0-1/OIF)
[2016-04-21 08:18] LABS: ASCORBIC ACID (UR NOT ORDER) NEG (NEG); BILIRUBIN, URINE NEGATIVE (NEG); KETONE, URINE NEGATIVE (NEG); LEUKOCYTE ESTERASE(NOT OR NEG (NEG); WBC (NOT ORDERED) (RFLEX) 1 (0-5)
[2016-04-22 10:25] LABS: BASOPHILS 0.1 %; BASOPHILS ABSOLUTE 0.01 10/3/uL (0.0-0.16); EOSINOPHILS 1.7 %; EOSINOPHILS ABSOLUTE 0.13 10/3/uL (0.0-0.53); HEMATOCRIT 29.7 % (36.0-48.0); HEMOGLOBIN 8.8 g/dL (12.0-16.0); IMMATURE GRANULOCYTES 0.3 %; IMMATURE GRANULOCYTES ABSOLUTE 0.02 10/3/uL (0.0-0.11); LYMPHOCYTES 14.6 %; LYMPHOCYTES ABSOLUTE 1.15 10/3/uL (0.67-4.30); MEAN CORPUS HGB CONC 29.6 g/dL (32.0-36.0); MEAN CORPUSCULAR HEMOGLOB 21.6 pg (26.0-34.0); MEAN CORPUSCULAR VOLUME 72.8 fL (80-100); MEAN PLATELET VOLUME 9.6 fL (9.2-13.0); MONOCYTES 7.8 %; MONOCYTES ABSOLUTE 0.61 10/3/uL (0.21-1.20); NEUTROPHILS 75.5 %; NEUTROPHILS ABSOLUTE 5.95 10/3/uL (2.02-8.40); PLATELET COUNT 184 10/3/uL (150-400); RBC DISTRIBUTION WIDTH 20.4 % (12.0-16.0); RED CELL COUNT 4.08 10/6/uL (4.0-5.6); WHITE BLOOD CELLS 7.9 10/3/uL (4.5-10.5)
[2016-04-22 10:27] LABS: MANUAL DIFF NO %
[2016-04-22 10:31] LABS: INTERNATIONAL NORMAL RATI 1.2 UNITS (-); PARTIAL THROMBO TIME 29.9 SEC (22.5-37.2); PROTIME (NOT ORD) 15.5 SEC (12.0-14.5)
[2016-04-22 11:00] LABS: ANISOCYTOSIS 1+ (5-10/OIF) (0-5/OIF); PLATELET ESTIMATE ADQ (ADEQUATE)
[2016-04-22 11:01] LABS: MACROCYTES 1+ (5-10/OIF) (0-5/OIF); POLYCHROMASIA 1+ (2-5/OIF) (0-1/OIF)
[2016-04-22 11:02] LABS: TEARDROP SHAPED RBCS FEW (3-10/OIF)
[2016-04-23 07:30] LABS: BASOPHILS 0.1 %; BASOPHILS ABSOLUTE 0.01 10/3/uL (0.0-0.16); EOSINOPHILS 1.7 %; EOSINOPHILS ABSOLUTE 0.13 10/3/uL (0.0-0.53); HEMATOCRIT 28.4 % (36.0-48.0); HEMOGLOBIN 8.7 g/dL (12.0-16.0); IMMATURE GRANULOCYTES 0.3 %; IMMATURE GRANULOCYTES ABSOLUTE 0.02 10/3/uL (0.0-0.11); LYMPHOCYTES 20.9 %; LYMPHOCYTES ABSOLUTE 1.59 10/3/uL (0.67-4.30); MEAN CORPUS HGB CONC 30.6 g/dL (32.0-36.0); MEAN CORPUSCULAR HEMOGLOB 21.9 pg (26.0-34.0); MEAN CORPUSCULAR VOLUME 71.5 fL (80-100); MEAN PLATELET VOLUME 10.2 fL (9.2-13.0); MONOCYTES 9.6 %; MONOCYTES ABSOLUTE 0.73 10/3/uL (0.21-1.20); NEUTROPHILS 67.4 %; NEUTROPHILS ABSOLUTE 5.13 10/3/uL (2.02-8.40); PLATELET COUNT 176 10/3/uL (150-400); RBC DISTRIBUTION WIDTH 20.6 % (12.0-16.0); RED CELL COUNT 3.97 10/6/uL (4.0-5.6); WHITE BLOOD CELLS 7.6 10/3/uL (4.5-10.5)
[2016-04-23 07:32] LABS: MANUAL DIFF NO %
[2016-04-23 07:40] LABS: INTERNATIONAL NORMAL RATI 1.2 UNITS (-); PROTIME (NOT ORD) 15.4 SEC (12.0-14.5)
[2016-04-23 07:44] LABS: BUN (BLOOD UREA NITROGEN) 24 MG/DL (6-23); CALCIUM, SERUM 8.2 MG/DL (8.5-10.4); CHLORIDE, SERUM 107 MMOL/L (96-112); CO2 (CARBON DIOXIDE) 28 MMOL/L (24-34); CREATININE 1.27 MG/DL (0.55-1.02); GFR AFRICAN AMERICAN 47 ML/MIN (>=60); GFR NON AFRICAN AMERICAN 41 ML/MIN (>=60); GLUCOSE, SERUM 87 MG/DL (60-99); POTASSIUM, SERUM 3.9 MMOL/L (3.5-5.3); SODIUM, SERUM 142 MMOL/L (135-148)
[2016-04-23 08:50] LABS: ANISOCYTOSIS 1+ (5-10/OIF) (0-5/OIF); PLATELET ESTIMATE ADQ (ADEQUATE)
[2016-04-23 08:51] LABS: POLYCHROMASIA 1+ (2-5/OIF) (0-1/OIF)
[2016-04-23 09:35] LABS: TROPONIN I <0.02 NG/ML (<0.05)
[2016-04-24 06:37] LABS: BASOPHILS 0.1 %; BASOPHILS ABSOLUTE 0.01 10/3/uL (0.0-0.16); EOSINOPHILS 1.5 %; EOSINOPHILS ABSOLUTE 0.12 10/3/uL (0.0-0.53); HEMATOCRIT 26.8 % (36.0-48.0); HEMOGLOBIN 7.9 g/dL (12.0-16.0); IMMATURE GRANULOCYTES 0.2 %; IMMATURE GRANULOCYTES ABSOLUTE 0.02 10/3/uL (0.0-0.11); LYMPHOCYTES 20.3 %; LYMPHOCYTES ABSOLUTE 1.63 10/3/uL (0.67-4.30); MEAN CORPUS HGB CONC 29.5 g/dL (32.0-36.0); MEAN CORPUSCULAR HEMOGLOB 21.1 pg (26.0-34.0); MEAN CORPUSCULAR VOLUME 71.5 fL (80-100); MEAN PLATELET VOLUME 10.2 fL (9.2-13.0); MONOCYTES ABSOLUTE 0.72 10/3/uL (0.21-1.20); NEUTROPHILS 68.9 %; NEUTROPHILS ABSOLUTE 5.52 10/3/uL (2.02-8.40); PLATELET COUNT 198 10/3/uL (150-400); RBC DISTRIBUTION WIDTH 21.1 % (12.0-16.0); RED CELL COUNT 3.75 10/6/uL (4.0-5.6)
[2016-04-24 06:45] LABS: MANUAL DIFF NO %
[2016-04-24 06:49] LABS: BUN (BLOOD UREA NITROGEN) 26 MG/DL (6-23); CALCIUM, SERUM 8.4 MG/DL (8.5-10.4); CHLORIDE, SERUM 106 MMOL/L (96-112); CO2 (CARBON DIOXIDE) 25 MMOL/L (24-34); CREATININE 1.27 MG/DL (0.55-1.02); GFR AFRICAN AMERICAN 47 ML/MIN (>=60); GFR NON AFRICAN AMERICAN 41 ML/MIN (>=60); GLUCOSE, SERUM 100 MG/DL (60-99); POTASSIUM, SERUM 3.9 MMOL/L (3.5-5.3); SODIUM, SERUM 142 MMOL/L (135-148)
[2016-04-24 07:41] LABS: ANISOCYTOSIS 1+ (5-10/OIF) (0-5/OIF); PLATELET ESTIMATE ADQ (ADEQUATE)
[2016-04-24 07:42] LABS: HYPOCHROMIA 1+ (3-10/OIF) (0-2/OIF); POLYCHROMASIA 1+ (2-5/OIF) (0-1/OIF)
[2016-04-24 23:37] LABS: THIAMINE <1.5 nmol/L (())
[2016-04-25 09:21] LABS: A/G RATIO 0.7 (0.7-1.9); ALBUMIN 2.8 G/DL (3.5-5.0); ALKALINE PHOSPHATASE 43 U/L (45-117); BUN (BLOOD UREA NITROGEN) 25 MG/DL (6-23); CALCIUM, SERUM 8.5 MG/DL (8.5-10.4); CHLORIDE, SERUM 106 MMOL/L (96-112); CO2 (CARBON DIOXIDE) 27 MMOL/L (24-34); CREATININE 1.31 MG/DL (0.55-1.02); GFR AFRICAN AMERICAN 46 ML/MIN (>=60); GFR NON AFRICAN AMERICAN 39 ML/MIN (>=60); GLOBULIN 3.9 G/DL (2.5-4.1); GLUCOSE, SERUM 103 MG/DL (60-99); PHOSPHORUS, SERUM 3.1 MG/DL (2.5-4.5); POTASSIUM, SERUM 3.7 MMOL/L (3.5-5.3); SGOT(AST) 25 U/L (5-40); SGPT(ALT) 17 U/L (5-65); SODIUM, SERUM 143 MMOL/L (135-148); TOTAL BILIRUBIN 0.5 MG/DL (0-1.2); TOTAL PROTEIN 6.7 G/DL (6.0-8.5)
[2016-04-26 06:25] LABS: BASOPHILS 0.4 %; BASOPHILS ABSOLUTE 0.03 10/3/uL (0.0-0.16); EOSINOPHILS 2.8 %; EOSINOPHILS ABSOLUTE 0.24 10/3/uL (0.0-0.53); HEMOGLOBIN 7.9 g/dL (12.0-16.0); IMMATURE GRANULOCYTES 0.5 %; IMMATURE GRANULOCYTES ABSOLUTE 0.04 10/3/uL (0.0-0.11); LYMPHOCYTES 18.5 %; LYMPHOCYTES ABSOLUTE 1.58 10/3/uL (0.67-4.30); MEAN CORPUS HGB CONC 29.3 g/dL (32.0-36.0); MEAN CORPUSCULAR HEMOGLOB 21.5 pg (26.0-34.0); MEAN CORPUSCULAR VOLUME 73.4 fL (80-100); MEAN PLATELET VOLUME 10.7 fL (9.2-13.0); MONOCYTES 9.7 %; MONOCYTES ABSOLUTE 0.83 10/3/uL (0.21-1.20); NEUTROPHILS 68.1 %; NEUTROPHILS ABSOLUTE 5.82 10/3/uL (2.02-8.40); PLATELET COUNT 195 10/3/uL (150-400); RBC DISTRIBUTION WIDTH 21.2 % (12.0-16.0); RED CELL COUNT 3.68 10/6/uL (4.0-5.6); WHITE BLOOD CELLS 8.5 10/3/uL (4.5-10.5)
[2016-04-26 06:27] LABS: MANUAL DIFF NO %
[2016-04-26 06:37] LABS: BUN (BLOOD UREA NITROGEN) 29 MG/DL (6-23); CHLORIDE, SERUM 104 MMOL/L (96-112); CO2 (CARBON DIOXIDE) 26 MMOL/L (24-34); CREATININE 1.27 MG/DL (0.55-1.02); GFR AFRICAN AMERICAN 47 ML/MIN (>=60); GFR NON AFRICAN AMERICAN 41 ML/MIN (>=60); GLUCOSE, SERUM 102 MG/DL (60-99); POTASSIUM, SERUM 3.8 MMOL/L (3.5-5.3); SODIUM, SERUM 142 MMOL/L (135-148)
[2016-04-26 06:52] LABS: ANISOCYTOSIS 1+ (5-10/OIF) (0-5/OIF); PLATELET ESTIMATE ADQ (ADEQUATE)
[2016-04-27 06:08] LABS: BASOPHILS 0.2 %; BASOPHILS ABSOLUTE 0.02 10/3/uL (0.0-0.16); EOSINOPHILS 0.9 %; HEMATOCRIT 26.1 % (36.0-48.0); HEMOGLOBIN 7.7 g/dL (12.0-16.0); IMMATURE GRANULOCYTES 0.4 %; IMMATURE GRANULOCYTES ABSOLUTE 0.04 10/3/uL (0.0-0.11); LYMPHOCYTES 16.5 %; LYMPHOCYTES ABSOLUTE 1.75 10/3/uL (0.67-4.30); MEAN CORPUS HGB CONC 29.5 g/dL (32.0-36.0); MEAN CORPUSCULAR HEMOGLOB 21.4 pg (26.0-34.0); MEAN CORPUSCULAR VOLUME 72.7 fL (80-100); MEAN PLATELET VOLUME 10.9 fL (9.2-13.0); MONOCYTES 9.5 %; NEUTROPHILS 72.5 %; NEUTROPHILS ABSOLUTE 7.67 10/3/uL (2.02-8.40); RBC DISTRIBUTION WIDTH 21.4 % (12.0-16.0); RED CELL COUNT 3.59 10/6/uL (4.0-5.6); WHITE BLOOD CELLS 10.6 10/3/uL (4.5-10.5)
[2016-04-27 06:10] LABS: MANUAL DIFF NO %; PLATELET COUNT 256 10/3/uL (150-400)
[2016-04-27 07:27] LABS: PLATELET ESTIMATE ADQ (ADEQUATE)
[2016-04-27 07:28] LABS: ELLIPTOCYTES 1+ (3-10/OIF) (0-2/OIF); POLYCHROMASIA 1+ (2-5/OIF) (0-1/OIF); STOMATOCYTES 1+ (3-10/OIF) (0-2/OIF)
[2016-04-27 11:20] LABS: BUN (BLOOD UREA NITROGEN) 31 MG/DL (6-23); CALCIUM, SERUM 8.5 MG/DL (8.5-10.4); CHLORIDE, SERUM 104 MMOL/L (96-112); CO2 (CARBON DIOXIDE) 26 MMOL/L (24-34); CREATININE 1.33 MG/DL (0.55-1.02); GFR AFRICAN AMERICAN 45 ML/MIN (>=60); GFR NON AFRICAN AMERICAN 39 ML/MIN (>=60); GLUCOSE, SERUM 143 MG/DL (60-99); POTASSIUM, SERUM 3.9 MMOL/L (3.5-5.3); SODIUM, SERUM 142 MMOL/L (135-148)
[2016-04-29 06:47] LABS: BASOPHILS 0.2 %; BASOPHILS ABSOLUTE 0.03 10/3/uL (0.0-0.16); EOSINOPHILS 0.6 %; EOSINOPHILS ABSOLUTE 0.09 10/3/uL (0.0-0.53); HEMATOCRIT 26.4 % (36.0-48.0); HEMOGLOBIN 7.7 g/dL (12.0-16.0); IMMATURE GRANULOCYTES 0.5 %; IMMATURE GRANULOCYTES ABSOLUTE 0.08 10/3/uL (0.0-0.11); LYMPHOCYTES 13.2 %; LYMPHOCYTES ABSOLUTE 1.97 10/3/uL (0.67-4.30); MEAN CORPUS HGB CONC 29.2 g/dL (32.0-36.0); MEAN CORPUSCULAR HEMOGLOB 21.4 pg (26.0-34.0); MEAN CORPUSCULAR VOLUME 73.5 fL (80-100); MEAN PLATELET VOLUME 11.2 fL (9.2-13.0); MONOCYTES 11.1 %; MONOCYTES ABSOLUTE 1.66 10/3/uL (0.21-1.20); NEUTROPHILS 74.4 %; NEUTROPHILS ABSOLUTE 11.13 10/3/uL (2.02-8.40); NUCLEATED RED BLOOD CELLS 0.3 /100WBC (0-0); RBC DISTRIBUTION WIDTH 22.3 % (12.0-16.0); RED CELL COUNT 3.59 10/6/uL (4.0-5.6)
[2016-04-29 06:48] LABS: MANUAL DIFF NO %; PLATELET COUNT 374 10/3/uL (150-400)
[2016-04-29 07:06] LABS: BUN (BLOOD UREA NITROGEN) 33 MG/DL (6-23); CALCIUM, SERUM 8.4 MG/DL (8.5-10.4); CHLORIDE, SERUM 102 MMOL/L (96-112); CO2 (CARBON DIOXIDE) 26 MMOL/L (24-34); CREATININE 1.37 MG/DL (0.55-1.02); GFR AFRICAN AMERICAN 43 ML/MIN (>=60); GFR NON AFRICAN AMERICAN 37 ML/MIN (>=60); SODIUM, SERUM 140 MMOL/L (135-148)
[2016-04-29 07:07] LABS: GLUCOSE, SERUM 97 MG/DL (60-99); POTASSIUM, SERUM 4.7 MMOL/L (3.5-5.3)
[2016-04-29 07:19] LABS: PLATELET ESTIMATE ADQ (ADEQUATE); POLYCHROMASIA 1+ (2-5/OIF) (0-1/OIF)
[2016-04-29] MEDS ORDERED: HALF81 PO (10:37)
[2016-04-29] MEDS ORDERED: KEPPRA750 MG PO (10:38)
[2016-04-29] MEDS ORDERED: MELA3 PO (10:40)
[2016-04-29] MEDS ORDERED: PROTONIX PO (10:41)
[2016-04-29] MEDS ORDERED: MIRALAX POWDER1 PKT PO (10:42)
[2016-04-29] MEDS ORDERED: ACETSUP650 PR (10:44)
[2016-04-29] MEDS ORDERED: NUIRONCAP PO (10:46)
[2016-06-01] MEDS ORDERED: TYLENOL PM PO (10:20)
[2016-06-01] MEDS ORDERED: DULERA 100 MCG/13 GM INH (10:21)
[2016-06-01] MEDS ORDERED: FERROUS SULF325 M1 PO (10:21)
[2016-06-01] MEDS ORDERED: XANAX1 MG PO (10:21)
== END 2016-04-29 13:03 | disposition home health service (06) | DRG 64 ==
LOC: ER 17:42 → 2SO 20:12 → MIC 04-20 08:29 → 1SO 04-22 14:23
PROVIDERS: Hospitalist; Internal Medicine; Internal Medicine Critical Care Medicine; Internal Medicine Gastroenterology; Internal Medicine Pulmonary Disease; Nurse Practitioner; Psychiatry & Neurology Neurology
PROC: 30233N1 Transfusion of Nonautologous Red Blood Cells into Peripheral Vein, Percutaneous Approach (ICD-10-PCS; principal; 2016-04-17)
DX: I63.9 Cerebral infarction, unspecified (principal); G93.40 Encephalopathy, unspecified; I13.0 Hypertensive heart and chronic kidney disease with heart failure and stage 1 through stage 4 chronic kidney disease, or unspecified chronic kidney disease; I50.22 Chronic systolic (congestive) heart failure; D62 Acute posthemorrhagic anemia; I25.110 Atherosclerotic heart disease of native coronary artery with unstable angina pectoris; I27.2 Other secondary pulmonary hypertension; I08.1 Rheumatic disorders of both mitral and tricuspid valves; G40.909 Epilepsy, unspecified, not intractable, without status epilepticus; N18.3 Chronic kidney disease, stage 3 (moderate); G43.909 Migraine, unspecified, not intractable, without status migrainosus; I25.5 Ischemic cardiomyopathy; I73.9 Peripheral vascular disease, unspecified; K57.90 Diverticulosis of intestine, part unspecified, without perforation or abscess without bleeding; D50.9 Iron deficiency anemia, unspecified; I65.23 Occlusion and stenosis of bilateral carotid arteries; K21.9 Gastro-esophageal reflux disease without esophagitis; I70.8 Atherosclerosis of other arteries; E78.5 Hyperlipidemia, unspecified; R33.8 Other retention of urine; R04.0 Epistaxis; Z79.02 Long term (current) use of antithrombotics/antiplatelets; Z79.82 Long term (current) use of aspirin; Z79.899 Other long term (current) drug therapy; Z79.891 Long term (current) use of opiate analgesic; Z87.891 Personal history of nicotine dependence; Z86.718 Personal history of other venous thrombosis and embolism; Z95.1 Presence of aortocoronary bypass graft; Z98.61 Coronary angioplasty status; Z86.73 Personal history of transient ischemic attack (TIA), and cerebral infarction without residual deficits; Z87.442 Personal history of urinary calculi; Z89.512 Acquired absence of left leg below knee; Z88.2 Allergy status to sulfonamides; Z88.5 Allergy status to narcotic agent; Z88.0 Allergy status to penicillin
CPT/HCPCS: 36415; 36430; 36600; 70450; 70496; 70498; 70544; 70547; 70548; 70551; 71010; 71020; 78452; 80048; 80053; 80061; 80069; 80076; 81001; 82140; 82330; 82550; 82553; 82607; 82728; 82746; 82803; 82805; 82947; 82962; 83036; 83540; 83550; 83735; 83880; 84100; 84132; 84295; 84425; 84439; 84443; 84484; 85014; 85018; 85025; 85045; 85610; 85730; 86850; 86870; 86900; 86901; 86920; 86922; 87641; 92950; 93005; 93017; 93306; 93880; 94640; 95816; 95819; 96374; 97110-GO; 97110-GP; 97162-GP; 97166-GO; 97530-GP; 97535-GO; 99285; A9270-GY; A9502; A9577; C9113; J0280; J1940; J1953; J2405; J2785; J2916; J2997; P9016; Q9967

== ENCOUNTER 2016-06-09 11:08 | Day surgery (SDC) | payer OTHER ==
--- NOTE | ~2016-06-09 | EGD ---
EGD REPORT [facility] [address] [address] NAME: DEBRA ABRAMS : 40 STATUS : REG [facility]#: [id number] AGE: 76 ADM/REG DATE : 06/09/16 MR#: [id number] REPORT SERV DATE: 06/09/16 DICTATED BY: NICHOLAS JEAN-BAPTISTE DATE: 06/09/16 REPORT STATUS : Draft [facility]ANSCRIBED [facility]: [facility] DATE: 06/09/16 Endoscopy Center Patient Name: Debra Abrams Date of : 1940 Attending MD: NICHOLAS JEAN-BAPTISTE MD Procedure Date No Time: 06/09/2016 Procedure: Upper GI endoscopy Indications: Iron deficiency anemia Referring MD: FARIBA STEWART Medicines: Monitored Anesthesia Care Complications: No immediate complications. Procedure: Pre-Anesthesia Assessment: - ASA Grade Assessment: IV - A patient with severe systemic disease that is a constant threat to life. After obtaining informed consent, the endoscope was passed under direct vision. Throughout the procedure, the patient's blood pressure, pulse, and oxygen saturations were monitored continuously. The GIF [id number] was introduced through the mouth, and advanced to the second part of duodenum. The upper GI endoscopy was accomplished without difficulty. The patient tolerated the procedure well. Findings: A non-obstructing Schatzki ring (acquired) was found in the lower third of the esophagus. A small hiatus hernia was present. The duodenal bulb and 2nd part of the duodenum were normal. Biopsies were taken with a cold forceps for histology. A single small angioectasia without bleeding was found in the second part of the duodenum. Coagulation for bleeding prevention using argon plasma at 0.7 liters/minute and 20 ghosh was successful. The cardia and gastric fundus were normal on retroflexion. Impression: - Non-obstructing Schatzki ring. - Hiatus hernia. - Normal duodenal bulb and 2nd part of the duodenum. Biopsied. - A single non-bleeding angioectasia in the duodenum. Treated with thermal therapy. Recommendation: - Patient has a contact number available for emergencies. The signs and symptoms of potential delayed complications were discussed with the patient. Return to normal activities tomorrow. Written discharge EGD REPORT [address] [place]. [address] NAME: DEBRA ABRAMS : 40 STATUS : REG [facility] PAT#: [id number] AGE: 76 ADM/REG DATE : 06/09/16 MR#: [id number] REPORT SERV DATE: 06/09/16 DICTATED BY: NICHOLAS JEAN-BAPTISTE DATE: 06/09/16 REPORT STATUS : Draft TRANSCRIBED BY: [facility] DATE: 06/09/16 instructions were provided to the patient. - Regular diet. - Continue present medications. - Return to GI clinic in 3 months. - Perform a colonoscopy (date not yet determined). Patient stated she would call us when she is ready to schedule. Check CBC in 1 month. Procedure Code(s): --- Professional --- 82179, Esophagogastroduodenoscopy, flexible, transoral; with biopsy, single or multiple Diagnosis Code(s): --- Professional --- K22.2, Esophageal obstruction K44.9, Diaphragmatic hernia without obstruction or gangrene K31.819, Angiodysplasia of stomach and duodenum without bleeding D50.9, Iron deficiency anemia, unspecified CPT copyright 2013 [employer]. All rights reserved. The codes documented in this report are preliminary and upon wet chemistry analyst review may be revised to meet current compliance requirements. NICHOLAS JEAN-BAPTISTE MD 06/09/2016 2:50 PM This report has been signed electronically. Number of Addenda: 0 Note Initiated On: 06/09/2016 2:26 PM Scope Withdrawal Time 0 hours 0 minutes 0 seconds [address]. [place] [id number]
[~2016-06-09 11:08] MED LIST changes: +ACETSUP650 PR; +ADVAIR250 INH; +DULERA 100 MCG/13 GM INH; +FERROUS SULF325 M1 PO; +HALF81 PO; +IMDUR30 PO; +KEPPRA750 MG PO; +L20 PO; +MACROBID PO; +MELA3 PO; +MIRALAX POWDER1 PKT PO; +NEUR100 PO; +NUIRONCAP PO; +PERCOCET 7.5/321 TAB PO; +ZANTAC150 MG PO; +ZOFRAN ODT4 MG PO
== END 2016-06-09 23:59 | disposition home health service (06) ==
LOC: DMU 11:08
PROVIDERS: Internal Medicine Gastroenterology
PROC: 0DB98ZX Excision of Duodenum, Via Natural or Artificial Opening Endoscopic, Diagnostic (ICD-10-PCS; principal; 2016-06-09 13:00)
DX: K22.2 Esophageal obstruction (principal); K44.9 Diaphragmatic hernia without obstruction or gangrene; R56.9 Unspecified convulsions; E78.00 Pure hypercholesterolemia, unspecified; I25.2 Old myocardial infarction; I25.119 Atherosclerotic heart disease of native coronary artery with unspecified angina pectoris; K31.819 Angiodysplasia of stomach and duodenum without bleeding; J44.9 Chronic obstructive pulmonary disease, unspecified; I73.9 Peripheral vascular disease, unspecified; N18.9 Chronic kidney disease, unspecified; M19.90 Unspecified osteoarthritis, unspecified site; I12.9 Hypertensive chronic kidney disease with stage 1 through stage 4 chronic kidney disease, or unspecified chronic kidney disease; K21.9 Gastro-esophageal reflux disease without esophagitis; Z95.1 Presence of aortocoronary bypass graft; Z88.2 Allergy status to sulfonamides; Z88.0 Allergy status to penicillin; Z88.5 Allergy status to narcotic agent; Z90.710 Acquired absence of both cervix and uterus; Z87.442 Personal history of urinary calculi; Z90.49 Acquired absence of other specified parts of digestive tract; Z87.891 Personal history of nicotine dependence
CPT/HCPCS: 88305